=== PATIENT | male | born 1965 | race Caucasian/White ===

== ENCOUNTER 2023-01-13 19:48 | Inpatient (IN) | payer MEDICARE ==
[~2023-01-13] VITALS: Ht 213.4 cm; Wt 75.5 kg
[2023-01-13] MEDS ORDERED: OXYCODONE HCL 5 MG TABLET ONE (20:08)
[2023-01-13] MEDS ORDERED: FUROSEMIDE 40 MG/4 ML VIAL IV ONE (20:15)
[2023-01-13] MEDS ORDERED: OXYCODONE HCL 5 MG TABLET PO ONE (20:15)
[2023-01-13] MEDS ORDERED: MORPHINE SULFATE 4 MG/1 ML DISP.SYRIN ONE (20:39)
[2023-01-13] MEDS ORDERED: MORPHINE SULFATE 4 MG/1 ML DISP.SYRIN IM ONE (20:45)
[2023-01-13] MEDS ORDERED: FUROSEMIDE 40 MG/4 ML VIAL ONE (21:05)
[2023-01-13 21:13] LABS: BASOPHILS % (AUTO) 0.4 % (0.0-2.0); EOSINOPHILS % (AUTO) 0.2 % (0.0-7.0); LYMPHOCYTES # (AUTO) 0.2 K/uL (0.8-4.8); LYMPHOCYTES % (AUTO) 2.1 % (20.5-51.5); MEAN CORPUSCULAR HEMOGLOBIN 28.4 uug (23.8-33.4); MEAN CORPUSCULAR HGB CONC 33 g/dL (32.5-36.3); MEAN CORPUSCULAR VOLUME 85.7 fL (73.0-96.2); MONOCYTES # (AUTO) 0.7 K/uL (0.1-1.30); MONOCYTES % (AUTO) 9.4 % (0.0-11.0); NEUTROPHILS # (AUTO) 6.5 K/uL (1.8-8.9); NEUTROPHILS % (AUTO) 87.9 % (38.5-71.5); PLATELET COUNT (AUTO) 143 K/uL (152-348); WHITE BLOOD COUNT (AUTO) 7.4 K/uL (3.6-10.2)
[2023-01-13 21:14] LABS: CALCIUM 9.4 mg/dL (8.5-10.1); CREATININE 5.4 mg/dL (0.6-1.3); POTASSIUM 4.7 mmol/L (3.5-5.1)
[2023-01-13 21:15] LABS: HEMATOCRIT 20.4 % (36.7-47.1); HEMOGLOBIN 6.8 g/dL (12.5-16.3); RED BLOOD CELL COUNT(AUTO) 2.38 MIL/uL (4.06-5.63)
[2023-01-13 21:16] LABS: DIFFERENTIAL COMMENT 1
[2023-01-13 21:19] LABS: ALBUMIN 2.7 g/dL (3.4-5.0); BILIRUBIN,TOTAL 0.8 mg/dL (0.2-1.0); MAGNESIUM 2.4 mg/dL (1.8-2.4); TOTAL PROTEIN, SERUM 6.6 g/dL (6.4-8.2)
[2023-01-13 22:22] LABS: LYMPHOCYTES % (MANUAL) 1 % (20-40); MONOCYTES % (MANUAL) 6 % (2-10); NEUTROPHILS % (MANUAL) 93 % (42-75); PLATELET ESTIMATE DECREASED
[2023-01-13 22:23] LABS: ANISOCYTOSIS 1+; HYPOCHROMASIA 1+
[2023-01-14] MEDS ORDERED: REMEDY ESSENTIAL ZINC PASTE 113 GM TP PRN (02:45)
[2023-01-14] MEDS ORDERED: MORPHINE SULFATE 2 MG/1 ML DISP.SYRIN IV PRN (02:45)
[2023-01-14] MEDS ORDERED: ACETAMINOPHEN 325 MG TABLET PO PRN (02:45)
[2023-01-14] MEDS ORDERED: INSULIN REGULAR, HUMAN 300 UNIT/3 ML VIAL SQ PRN (02:45)
[2023-01-14] MEDS ORDERED: DEXTROSE 50% 50 ML DISP.SYRIN IV PRN (02:45)
[2023-01-14] MEDS ORDERED: MAGNESIUM HYDROXIDE 30 ML LIQUID UDC PO PRN (02:45)
[2023-01-14] MEDS ORDERED: ZOLPIDEM 5 MG TABLET PO PRN (02:45)
[2023-01-14 04:00] VITALS: BP 141/64; TEMP 97.4; O2SAT 98
[2023-01-14] MEDS: BLOOD SUGAR DIAGNOSTIC 1 EACH STRIP VI SCH ×4 (06:37→20:49)
[2023-01-14 06:41] LABS: BASOPHILS % (AUTO) 0.5 % (0.0-2.0); EOSINOPHILS % (AUTO) 0.2 % (0.0-7.0); HEMATOCRIT 23.1 % (36.7-47.1); HEMOGLOBIN 7.8 g/dL (12.5-16.3); LYMPHOCYTES # (AUTO) 0.3 K/uL (0.8-4.8); LYMPHOCYTES % (AUTO) 4.1 % (20.5-51.5); MEAN CORPUSCULAR HGB CONC 34 g/dL (32.5-36.3); MEAN CORPUSCULAR VOLUME 86.1 fL (73.0-96.2); MONOCYTES # (AUTO) 0.7 K/uL (0.1-1.30); MONOCYTES % (AUTO) 9.4 % (0.0-11.0); NEUTROPHILS # (AUTO) 6.3 K/uL (1.8-8.9); NEUTROPHILS % (AUTO) 85.8 % (38.5-71.5); PLATELET COUNT (AUTO) 140 K/uL (152-348); RED BLOOD CELL COUNT(AUTO) 2.69 MIL/uL (4.06-5.63); RED CELL DISTRIBUTION WIDTH 17.2 % (12.1-16.2); WHITE BLOOD COUNT (AUTO) 7.4 K/uL (3.6-10.2)
[2023-01-14 06:52] LABS: DIFFERENTIAL COMMENT 1
[2023-01-14 06:57] LABS: CALCIUM 8.4 mg/dL (8.5-10.1); CREATININE 5.5 mg/dL (0.6-1.3); MAGNESIUM 2.3 mg/dL (1.8-2.4); PHOSPHOROUS 6.3 mg/dL (2.5-4.9); POTASSIUM 4.2 mmol/L (3.5-5.1)
[2023-01-14] MEDS: MORPHINE SULFATE 2 MG/1 ML DISP.SYRIN IV PRN ×3 (07:59→22:25)
[2023-01-14 10:02] LABS: IRON, SERUM 41 ug/dL (50-175)
[2023-01-14 10:03] LABS: AMMONIA < 10 umol/L (11-32)
[2023-01-14 11:25] VITALS: BP 116/49; TEMP 98.2; O2SAT 97
[2023-01-14] MEDS ORDERED: ACET-2154 PO (11:29)
[2023-01-14] MEDS ORDERED: ASPI81TA31 PO (11:29)
[2023-01-14] MEDS ORDERED: GABA300C PO (11:29)
[2023-01-14] MEDS ORDERED: AMLO-212 PO (11:29)
[2023-01-14] MEDS ORDERED: SEVE800T8 PO (11:29)
[2023-01-14] MEDS ORDERED: FURO40TA5 PO (11:29)
[2023-01-14] MEDS ORDERED: METO50TA16 PO (11:29)
[2023-01-14] MEDS ORDERED: MELA3CAP2 PO (11:29)
[2023-01-14] MEDS ORDERED: ALBU2.5V38 IH (11:29)
[2023-01-14] MEDS ORDERED: ATOR20TA PO (11:29)
[2023-01-14] MEDS ORDERED: OXYC10TA49 PO (11:29)
[2023-01-14] MEDS ORDERED: TIOT4MIS3 IH (11:29)
[2023-01-14] MEDS ORDERED: QUET25TA PO (11:29)
[2023-01-14] MEDS ORDERED: CEFA500C PO (11:29)
[2023-01-14 15:54] VITALS: BP 116/51; TEMP 97.3; O2SAT 98
[2023-01-14] MEDS: ONDANSETRON 4 MG/2 ML VIAL IV PRN (16:09)
[2023-01-14] MEDS: DICYCLOMINE HCL 10 MG CAPSULE PO PRN (16:35)
[2023-01-14 20:34] VITALS: BP 166/67; O2SAT 97
[2023-01-15 00:36] VITALS: BP 132/49; TEMP 98.2; O2SAT 97
[2023-01-15 04:00] VITALS: BP 124/52; TEMP 98.1; O2SAT 96
[2023-01-15] MEDS: MORPHINE SULFATE 2 MG/1 ML DISP.SYRIN IV PRN ×4 (06:17→20:26)
[2023-01-15 06:50] LABS: BASOPHILS % (AUTO) 0.4 % (0.0-2.0); EOSINOPHILS % (AUTO) 0.6 % (0.0-7.0); HEMATOCRIT 22.9 % (36.7-47.1); HEMOGLOBIN 7.6 g/dL (12.5-16.3); LYMPHOCYTES # (AUTO) 0.3 K/uL (0.8-4.8); LYMPHOCYTES % (AUTO) 3.3 % (20.5-51.5); MEAN CORPUSCULAR HEMOGLOBIN 28.5 uug (23.8-33.4); MEAN CORPUSCULAR HGB CONC 33 g/dL (32.5-36.3); MEAN CORPUSCULAR VOLUME 85.9 fL (73.0-96.2); MONOCYTES # (AUTO) 0.7 K/uL (0.1-1.30); MONOCYTES % (AUTO) 7.9 % (0.0-11.0); NEUTROPHILS # (AUTO) 7.8 K/uL (1.8-8.9); NEUTROPHILS % (AUTO) 87.8 % (38.5-71.5); PLATELET COUNT (AUTO) 150 K/uL (152-348); RED BLOOD CELL COUNT(AUTO) 2.66 MIL/uL (4.06-5.63); RED CELL DISTRIBUTION WIDTH 17.4 % (12.1-16.2); WHITE BLOOD COUNT (AUTO) 8.9 K/uL (3.6-10.2)
[2023-01-15 07:06] LABS: CREATININE 4.2 mg/dL (0.6-1.3); DIFFERENTIAL COMMENT 1; MAGNESIUM 2.3 mg/dL (1.8-2.4); PHOSPHOROUS 4.2 mg/dL (2.5-4.9); POTASSIUM 3.8 mmol/L (3.5-5.1)
[2023-01-15] MEDS: BLOOD SUGAR DIAGNOSTIC 1 EACH STRIP VI SCH ×4 (07:14→20:26)
[2023-01-15] MEDS ORDERED: EPOETIN ALFA-EPBX 10,000 UNIT/ML VIAL SQ SCH (10:45)
[2023-01-15] MEDS: ONDANSETRON 4 MG/2 ML VIAL IV PRN (11:33)
[2023-01-15 11:38] VITALS: BP 132/51; TEMP 97.4; O2SAT 94
[2023-01-15 16:00] VITALS: BP 133/54; TEMP 97.6; O2SAT 97
[2023-01-15] MEDS: DICYCLOMINE HCL 10 MG CAPSULE PO PRN (20:26)
[2023-01-15 20:30] VITALS: BP 138/58; TEMP 97.6; O2SAT 98
[2023-01-16 00:16] VITALS: BP 131/52; TEMP 97.5; O2SAT 99
[2023-01-16 04:28] VITALS: BP 140/45; TEMP 98; O2SAT 100
[2023-01-16] MEDS: BLOOD SUGAR DIAGNOSTIC 1 EACH STRIP VI SCH ×2 (07:42→11:32)
[2023-01-16] MEDS ORDERED: EPOETIN ALFA-EPBX 10,000 UNIT/ML VIAL SQ SCH ×2 (09:00→14:00)
[2023-01-16] MEDS: MORPHINE SULFATE 2 MG/1 ML DISP.SYRIN IV PRN (09:03)
[2023-01-16 09:05] LABS: BASOPHILS % (AUTO) 0.4 % (0.0-2.0); EOSINOPHILS # (AUTO) 0.1 K/uL (0.0-0.7); EOSINOPHILS % (AUTO) 0.6 % (0.0-7.0); HEMATOCRIT 26.5 % (36.7-47.1); HEMOGLOBIN 8.5 g/dL (12.5-16.3); LYMPHOCYTES # (AUTO) 0.5 K/uL (0.8-4.8); LYMPHOCYTES % (AUTO) 4.1 % (20.5-51.5); MEAN CORPUSCULAR HEMOGLOBIN 27.9 uug (23.8-33.4); MEAN CORPUSCULAR HGB CONC 32 g/dL (32.5-36.3); MONOCYTES # (AUTO) 0.6 K/uL (0.1-1.30); MONOCYTES % (AUTO) 5.6 % (0.0-11.0); NEUTROPHILS # (AUTO) 10.2 K/uL (1.8-8.9); NEUTROPHILS % (AUTO) 89.3 % (38.5-71.5); PLATELET COUNT (AUTO) 172 K/uL (152-348); RED BLOOD CELL COUNT(AUTO) 3.05 MIL/uL (4.06-5.63); RED CELL DISTRIBUTION WIDTH 17.8 % (12.1-16.2); WHITE BLOOD COUNT (AUTO) 11.4 K/uL (3.6-10.2)
[2023-01-16 09:18] LABS: CALCIUM 9.5 mg/dL (8.5-10.1); CREATININE 5.3 mg/dL (0.6-1.3); POTASSIUM 4.1 mmol/L (3.5-5.1)
[2023-01-16 09:37] LABS: DIFFERENTIAL COMMENT 1
[2023-01-16] MEDS ORDERED: HYDROCODONE/APAP 5-325MG TABLET PO PRN (09:45)
[2023-01-16] MEDS ORDERED: VANCOMYCIN IV 1,250 MG in IV DEXTROSE 5% 250 ML IV ONE (10:30)
[2023-01-16 11:10] VITALS: BP 123/56; TEMP 98.2; O2SAT 100
[2023-01-17 08:06] LABS: HEPATITIS B SURFACE AB, QUAL Reactive (.); HEPATITIS B SURFACE AG Negative (Negative)
[2023-01-17] MEDS ORDERED: VANCOMYCIN IV 500 MG in IV DEXTROSE 5% 100 ML IV PRN (10:00)
[2023-01-17] MEDS ORDERED: GABAPENTIN 300 MG CAPSULE PO SCH (21:00)
== END 2023-01-16 14:15 | disposition left against medical advice (07) | DRG 377 ==
LOC: ER 19:48 → MEDSURG3 01-14 02:44 → TELE3 01-14 03:16
PROVIDERS: ADMIT Nurse Practitioner Acute Care; ATTEND Internal Medicine
PROC: 30233N1 Transfusion of Nonautologous Red Blood Cells into Peripheral Vein, Percutaneous Approach (ICD-10-PCS; principal; 2023-01-14)
PROC: 05HB33Z Insertion of Infusion Device into Right Basilic Vein, Percutaneous Approach (ICD-10-PCS; 2023-01-14)
PROC: 5A1D70Z Performance of Urinary Filtration, Intermittent, Less than 6 Hours Per Day (ICD-10-PCS; 2023-01-14)
DX: K57.91 Diverticulosis of intestine, part unspecified, without perforation or abscess with bleeding (principal); N18.6 End stage renal disease; I13.2 Hypertensive heart and chronic kidney disease with heart failure and with stage 5 chronic kidney disease, or end stage renal disease; E11.52 Type 2 diabetes mellitus with diabetic peripheral angiopathy with gangrene; I70.262 Atherosclerosis of native arteries of extremities with gangrene, left leg; E11.22 Type 2 diabetes mellitus with diabetic chronic kidney disease; D63.1 Anemia in chronic kidney disease; N50.89 Other specified disorders of the male genital organs; Z99.2 Dependence on renal dialysis; J43.9 Emphysema, unspecified; Z89.512 Acquired absence of left leg below knee; M89.8X9 Other specified disorders of bone, unspecified site; K40.20 Bilateral inguinal hernia, without obstruction or gangrene, not specified as recurrent; I50.9 Heart failure, unspecified; K74.60 Unspecified cirrhosis of liver; R16.1 Splenomegaly, not elsewhere classified; F41.9 Anxiety disorder, unspecified
CPT/HCPCS: 36415; 70030-TC; 71045; 83550; 83605; 83735; 84100; 85025; 86706; 86850; 86900; 86901; 86920; 87340; 90937; G0378; J0885; J1815; J1940; J2270; J2405; J7040; J7050; P9016